=== PATIENT | male | born 1930 | race African-American/Black ===

== ENCOUNTER → 2017-11-27 | Outpatient (CLI) | payer MEDICARE, BC | END | disposition home or self-care (01) | LOC: RAD 14:06 | DX: R10.84 Generalized abdominal pain (principal); M46.00 Spinal enthesopathy, site unspecified | CPT/HCPCS: 71046 ==

== ENCOUNTER → 2017-12-09 | Outpatient (CLI) | payer MEDICARE, BC | END | disposition home or self-care (01) | LOC: US 10:17 | DX: I77.819 Aortic ectasia, unspecified site (principal); R31.9 Hematuria, unspecified | CPT/HCPCS: 76770 ==